=== PATIENT | female | born 1935 | race Caucasian/White ===

== ENCOUNTER 2023-06-09 22:57 | Emergency (ER) | payer MEDICARE, OTHER, SELFPAY ==
[2023-06-09 22:59] VITALS: BP 168/78; PULSE 75; RESP 18; TEMP 36.9; O2SAT 92; BMI 22.3
--- NOTE | 2023-06-09 23:07 | XRR_ITS ---
PROCEDURE INFORMATION: Exam: XR Right Hip Exam date and time: 06/09/2023 11:12 PM Age: 87 years old Clinical indication: Hip pain; Right hip; Additional info: Fall, RT hip pain TECHNIQUE: Imaging protocol: Radiologic exam of the right hip. Views: 1 view hip with pelvis when performed. COMPARISON: No relevant prior studies available. FINDINGS: Bones/joints: Mild osteopenia and bilateral hip DJD. No acute fracture. Soft tissues: Left-sided ostomy. XR/XR hip RT 2-3V wo/w pel* [id number] IMPRESSION: No acute findings.
--- NOTE | 2023-06-09 23:07 | CTR_ITS ---
PROCEDURE INFORMATION: Exam: CT Head Without Contrast Exam date and time: 06/09/2023 11:23 PM Age: 87 years old Clinical indication: Pain; Headache not specified; Additional info: Fall, headache TECHNIQUE: Imaging protocol: Computed tomography of the head without contrast. Radiation optimization: All CT scans at this facility use at least one of these dose optimization techniques: automated exposure control; mA and/or kV adjustment per patient size (includes targeted exams where dose is matched to clinical indication); or iterative reconstruction. REPORTING DATA: Count of CT and Cardiac NM exams in prior 12 months: This patient has received 0 known CTs and 0 known cardiac nuclear medicine studies in the 12 months prior to the current study. COMPARISON: No relevant prior studies available. RADIATION DOSE METRICS: Total DLP (mGy-cm): 1122.18 FINDINGS: Brain: No acute intracranial hemorrhage, abnormal extra-axial fluid collection, mass effect, or midline shift. [id number] periventricular and subcortical white matter hypodensities compatible with changes of tlrs-eo-ssypcwty burden chronic small-vessel disease. Prominence of the ventricles and sulci compatible with age related global involutional changes. Cerebral ventricles: The ventricular system is within normal limits of variation for the patient's age. Paranasal sinuses: There is no acute sinusitis Mastoid air cells: Partial opacification of the bilateral mastoid air cells. Auditory system: Soft tissue density within the right external auditory canal likely represents cerumen, correlate clinically. Bones/joints: No acute fracture. Soft tissues: Grossly unremarkable. Vasculature: Atheromatous changes are seen within the bilateral carotid siphons. CT/CT head wo con* [id number] IMPRESSION: 1. No acute intracranial findings. 2. Other chronic/incidental findings as described above.
--- NOTE | 2023-06-09 23:07 | CTR_ITS ---
PROCEDURE INFORMATION: Exam: CT Cervical Spine Without Contrast Exam date and time: 06/09/2023 11:25 PM Age: 87 years old Clinical indication: Injury or trauma; Fall; Additional info: Fall, neck pain TECHNIQUE: Imaging protocol: Computed tomography of the cervical spine without contrast. Radiation optimization: All CT scans at this facility use at least one of these dose optimization techniques: automated exposure control; mA and/or kV adjustment per patient size (includes targeted exams where dose is matched to clinical indication); or iterative reconstruction. REPORTING DATA: Count of CT and Cardiac NM exams in prior 12 months: This patient has received 0 known CTs and 0 known cardiac nuclear medicine studies in the 12 months prior to the current study. COMPARISON: CT head wo con* [id number] 06/09/2023 11:23 PM RADIATION DOSE METRICS: Total DLP (mGy-cm): 181.87 FINDINGS: Bones/joints: No acute cervical spine fracture or spondylolisthesis. Multilevel intervertebral disc space narrowing along with posterior disc osteophyte complexes, uncovertebral joint hypertrophic changes, and facet arthropathy appears to result in up to severe stenosis of the neural foramina. No significant spinal canal stenosis. Lungs: Lung apices are grossly unremarkable. Soft tissues: Grossly unremarkable. CT/CT cervical spin wo con* [id number] IMPRESSION: 1. No acute cervical spine fracture or spondylolisthesis. 2. Cervical spondylosis as described above.
--- NOTE | 2023-06-09 23:57 | W.ED.FALL ---
HPI - Fall General: Chief Complaint: Fall Stated Complaint: FALL Time Seen by Provider: 06/09/23 23:03 Source: EMS Mode of arrival: EMS Limitations: altered mental status History of Present Illness: 87-year-old female has a history of dementia is here from [facility] after a fall as ground-level. She had hit her head and has a hematoma to right forehead per EMS patient complained of right hip pain at the scene here she is denying any pain and is moving her leg without any pain. History not really available due to her dementia she does not even really remember falling and has no complaints at this time patient is in a c-collar here as well. Review of Systems General: Reports: ROS unobtainable due to mental status Physical Exam Const: COMMON NORMALS: negative for patient oriented x3 HENMT: OTHER: Hematoma noted to right forehead along with 1cm superficial laceration to right forehead Eye: COMMON NORMALS: Equal, round and reactive pupils present and EOMs intact bilaterally PUPIL: Yes Equal, round and reactive pupils present Neck/C-Spine: OTHER: Currently in c-collar Chest: COMMONS NORMALS: normal inspection of the chest and normal palpation of entire chest wall Resp: COMMON NORMALS: normal respiratory effort, No use of accessory muscles and clear to auscultation bilaterally EFFORT & INSPECTION: Yes able to speak in complete sentences AUSCULTATION: clear to auscultation bilaterally Cardio: COMMON NORMALS: regular rate and regular rhythm RATE: regular rate RHYTHM: regular rhythm GI: COMMON NORMALS: Normal to inspection, nondistended, normoactive bowel sounds present, Soft to palpation and non-tender PALPATION: Yes Soft to palpation Back/Pelvis: COMMON NORMALS: no thoracic nor lumbar tenderness Extremity: COMMON NORMALS: normal to inspection and full ROM Neuro: COMMON NORMALS: negative for patient oriented x3 Psych: COMMON NORMALS: negative for mental status grossly normal Skin: COMMON NORMALS: no rashes or lesions noted GENERAL SKIN EXAM: no rashes or lesions noted Procedures Laceration Laceration 1: Site: face Side (If applicable): right Size (cm): 1 Description: linear Depth: simple, single layer Pre-repair: wound explored and irrigated extensively Skin layer closed with: other (dermabond) Course Vital Signs: Vital signs: Vital Signs Temperature 98.4 F 06/09/23 22:59 Pulse Rate 75 06/09/23 22:59 Respiratory Rate 16 06/10/23 00:05 Blood Pressure 168/78 06/09/23 22:59 Pulse Oximetry 92 06/09/23 22:59 Oxygen Delivery Me thod Room Air 06/09/23 22:59 MDM - Fall Medical Decision Making Patient presents here with closed head injury along with a head laceration from a fall. Wound was repaired with tissue adhesive CT scans here are all normal patient stable for discharge she is to follow-up with PCP and return if worsening. Medical Records I reviewed the patient's medical records. Lab Data Radiology Impressions Cervical Spine CT 06/09/23 23:07 IMPRESSION: 1. No acute cervical spine fracture or spondylolisthesis. 2. Cervical spondylosis as described above. Head CT 06/09/23 23:07 IMPRESSION: 1. No acute intracranial findings. 2. Other chronic/incidental findings as described above. Hip/Pelvis X-Ray 06/09/23 23:07 IMPRESSION: No acute findings. 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
[2023-06-10 00:05] VITALS: RESP 16
== END 2023-06-10 00:38 | disposition home or self-care (01) ==
PROVIDERS: Emergency Provider Emergency Medicine; PCP Family Medicine
DX: S01.81XA Laceration without foreign body of other part of head, initial encounter (principal); F03.90 Unspecified dementia, unspecified severity, without behavioral disturbance, psychotic disturbance, mood disturbance, and anxiety; S00.83XA Contusion of other part of head, initial encounter; W18.30XA Fall on same level, unspecified, initial encounter; Y92.129 Unspecified place in nursing home as the place of occurrence of the external cause
CPT/HCPCS: 12011; 70450; 72125; 73502; 99284